=== PATIENT | male | born 1955 | race Caucasian/White ===

== ENCOUNTER 2024-01-02 05:31 | Emergency (ER) | payer MEDICARE, BC ==
[~2024-01-02] VITALS: Ht 172.7 cm; Wt 70.3 kg
[2024-01-02] MEDS ORDERED: FLUORESCEIN SODIUM OPHTH 1 EA STRIP ONE (06:10)
[2024-01-02] MEDS ORDERED: CIPR5DRO EACHEYE (06:36)
[2024-01-02 06:41] VITALS: BP 134/97; TEMP 98.1; O2SAT 96
== END 2024-01-02 06:42 | disposition home or self-care (01) ==
LOC: ER 05:38
DX: H10.9 Unspecified conjunctivitis (principal); Z90.89 Acquired absence of other organs; Z60.2 Problems related to living alone